=== PATIENT | female | born 1965 | race Two or more races ===

== ENCOUNTER 2021-07-06 22:21 | Emergency (ER) | payer OTHER ==
[~2021-07-06] VITALS: Ht 154.9 cm; Wt 76.2 kg
[2021-07-06] MEDS ORDERED: TIROSINT25 MCG (22:33)
[2021-07-06] MEDS ORDERED: SYMBICORT 16010.2 GM (22:34)
== END 2021-07-07 | disposition home or self-care (01) ==
LOC: ER 22:21
DX: U07.1 COVID-19 (principal); Z87.09 Personal history of other diseases of the respiratory system; J45.909 Unspecified asthma, uncomplicated; J32.9 Chronic sinusitis, unspecified